=== PATIENT | female | born 1955 | race Caucasian/White ===

== ENCOUNTER → 2019-03-04 | Outpatient (CLI) | payer MEDICARE ==
--- NOTE | 2019-03-04 10:24 | RADIOLOGY REPORT (SQ) ---
EXAM DESCRIPTION: MRI HEAD WITHOUT COMPLETED DATE/TIME: 03/04/2019 8:16 am REASON FOR STUDY: HEADACHE (R51) R51 HEADACHE COMPARISON: None. TECHNIQUE: Multiplanar imaging includes non-contrasted T1, T2, FLAIR, and diffusion with ADC map seq uences. Images stored on PACS. LIMITATIONS: None. FINDINGS: ANATOMY: No anomalies. Normal vascular flow voids. Pituitary fossa normal. CSF SPACES: Normal in size and contour. No hemorrhage. CEREBRUM: Sulci and gyri normal in size and contour. There are few scattered areas of increased whit e matter signal on FLAIR imaging. No evidence of hemorrhage, mass, or extraaxial fluid collection. POSTERIOR FOSSA: No signal alteration. No hemorrhage. No edema, masses or mass effect. Internal gunnar tory canals, cerebello-pontine angles, mastoids normal. DIFFUSION IMAGING: Negative for acute or sub-acute infarction. ORBITS: No masses. Globes normal. PARANASAL SINUSES: No fluid levels. Mucosa normal. OTHER: No other significant finding. IMPRESSION: Mild chronic microvascular ischemia with no acute intracranial imaging findings. EVIDENCE OF ACUTE STROKE: NO. TECHNICAL DOCUMENTATION: JOB ID: [id number]- All Rights Reserved Reading location - IP/workstation name: [email or web address]
== END ==
LOC: RAD 07:28
PROVIDERS: ATTEND Family Medicine
DX: R51 Headache (principal)
CPT/HCPCS: 70551

== ENCOUNTER → 2019-10-06 | Outpatient (CLI) | payer MEDICARE | LOC: WI 07:40 | PROVIDERS: ATTEND Physician Assistant | DX: Z12.31 Encounter for screening mammogram for malignant neoplasm of breast (principal) | CPT/HCPCS: 77063; 77067 ==

== ENCOUNTER 2019-10-09 18:09 | Emergency (ER) | payer MEDICARE ==
[2019-10-09] MEDS ORDERED: DIPH/PERTUSS(ACELL)/TETANUS VAC/PF 0.5 ML SYR (>=10YO) IM ONE ×2 (18:30→21:00)
[2019-10-09] MEDS ORDERED: AMOXICILLIN TRIHYD 250 MG CAPSULE PO ONE ×2 (18:30→21:00)
[2019-10-09] MEDS ORDERED: AMOXICILLIN TR/POT CLAVULANATE 500-125 MG TAB PO ONE ×2 (18:30→21:00)
[2019-10-09] MEDS ORDERED: IBUPROFEN 800 MG TABLET PO ONE (18:30)
--- NOTE | 2019-10-09 18:44 | ER Document Report ---
ED Animal Bite - General Chief Complaint: Dog Bite Stated Complaint: DOG BITE/HAND,ARM Time Seen by Provider: 10/09/19 18:29 Primary Care Provider: YANCI SIBLEY PA [PHYSICIAN SERVICE DELIVERY MANAGER] - Follow up as needed Notes: Patient is a 63-year-old female who presents emergency department with a chief complaint of dog bite. Patient reports about 30 minutes prior to arrival she attempted to break up a dog fight between her own dogs when she obtained multiple puncture wounds to left forearm and right hand. She reports the dog's immunizations are up-to-date. Unsure as her tetanus is up-to-date. Patient reports numbness to the right fourth and fifth digits. Patient denies any other injury. Patient reports that the dogs were fighting over a toy. TRAVEL OUTSIDE OF THE [place] IN LAST 30 DAYS: No - Related Data Allergies/Adverse Reactions: enoxaparin [From Lovenox] Allergy (Verified 10/09/19 18:29) Past Medical History - General Information source: Patient - Social History Smoking Status: Former Smoker Lives with: Family Family History: None Patient has suicidal ideation: No Patient has homicidal ideation: No - Past Medical History Cardiac Medical History: Reports: None Pulmonary Medical History: Reports: None EENT Medical History: Reports: None Neurological Medical History: Reports: None Endocrine Medical History: Reports: None Renal/ Medical History: Reports: None Malignancy Medical History: Reports: None GI Medical History: Reports: None Musculoskeletal Medical History: Reports None Skin Medical History: Reports None Psychiatric Medical History: Reports: None Traumatic Medical History: Reports: None Infectious Medical History: Reports: None Past Surgical History: Reports: Hx Orthopedic Surgery - R & L hand, L ankle, R foot Review of Systems - Review of Systems Constitutional: No symptoms reported EENT: No symptoms reported Cardiovascular: No symptoms reported Respiratory: No symptoms reported Gastrointestinal: No symptoms reported Genitourinary: No symptoms reported Female Genitourinary: No symptoms reported Musculoskeletal: No symptoms reported Skin: See HPI Hematologic/Lymphatic: No symptoms reported Neurological/Psychological: No symptoms reported Physical Exam - Notes Notes: GENERAL: Well-appearing, well-nourished and in no acute distress. HEAD: Atraumatic, normocephalic. EYES: Pupils equal round and reactive to light, extraocular movements intact, sc quita anicteric, conjunctiva are normal. ENT: Nares patent, oropharynx clear without exudates. Moist mucous membranes. NECK: Normal range of motion, supple without lymphadenopathy or JVD. LUNGS: Breath sounds clear to auscultation bilaterally and equal. No wheezes rales or rhonchi. HEART: Regular rate and rhythm without murmurs, rubs or gallops. ABDOMEN: Soft, nontender, normoactive bowel sounds. No guarding, no rebound. No masses appreciated. BACK: No cervical, thoracic, lumbar midline tenderness. No saddle anesthesia, normal distal neurovascular exam. GENITOURINARY: Deferred. EXTREMITIES: Patient has a 2-1/2 cm laceration that is jagged to the dorsal aspect of the left forearm. There is an active ooze of blood. Patient also has a puncture wound noted to the dorsal aspect of the lower left forearm. To the left hand patient has a strong contract engineer. Patient has a less than 2-second cap refill in all digits. Patient denies numbness or tingling. Patient has good flexion-extension of all digits. Patient has a strong left radial pulse. Patient has a 1 cm laceration noted to the palmar aspect of the right hand. There is an active ooze of blood. Patient also has 2 puncture wounds noted to the dorsal aspect of the right hand. Patient does have a large amount of ecchymosis noted to the dorsal aspect of the right hand. Patient has weak flexion and extension of the third fourth and fifth digit. Patient reports that this induces pain when attempting to flex and extend but she is able to perform both. Patient has less than 2-second cap refill on all digits of the right hand. Patient limited on contract engineer of the right hand do to pain with movement. NEUROLOGICAL: Cranial nerves II through XII grossly intact. Normal speech, normal gait. PSYCH: Normal mood, normal affect. SKIN: Warm, Dry, normal turgor, no rashes or lesions noted. Course - Re-evaluation Re-evalutation: 10/09/19 18:41 While sitting in the lobby patient was in the wheelchair. Neighbor states that she was talking to the patient when she complained of right hand pain that was severe and then passed out. I was immediately brought to the patient's side when she did arouse with a sternal rub. Patient has been mentating appropriately over the past 10 minutes without altered level of consciousness. Patient reports she was having significant pain to the right hand. We did rewrap the patient's wounds with a wet gauze. Will obtain x-ray, give tetanus, initiate prophylactic antibiotics. We will continue to monitor the patient. 10/09/19 21:19 Patient tolerated wound cleansing well. Patient given strict return precautions and noted to come back in 10 days to have the sutures removed. Patient verbalized understanding. I did reiterate the importance of checking the wounds multiple times per day for signs of infection. Once again patient reports that the dog's immunizations are up-to-date. Patient has not had any more episodes of severe pain and episodes of passing out. She has been mentating appropriately and is alert and oriented x4. Patient drinking without any difficulty. Patient stable for discharge. - Diagnostic Test Radiology reviewed: Reports reviewed Radiology results interpreted by me: 10/09/19 20:16 Forearm X-Ray 10/09/19 18:32 IMPRESSION: No soft tissue abnormality or radiopaque foreign body. No acute fr acture. Hand X-Ray 10/09/19 18:32 IMPRESSION: No acute fracture of the right hand. No soft tissue abnormality or radiopaque foreign body. 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 Procedures - Laceration/Wound Repair Left Distal Arm Time completed: 20:30 Wound length (cm): 2.5 Wound's Depth, Shape: Irregular, Flap Laceration pre-procedure: Sterile PPE donned, Sterile drapes applied, Shur-Clens applied Anesthetic type: 1% Lidocaine Volume Anesthetic (mLs): 5 Wound explored: Clean Irrigated w/ Saline (mLs): 250 Wound Repaired With: Sutures Suture Size/Type: 5:0, Ethilon Number of Sutures: 2 Post-procedure wound care: Sterile dressing applied Post-procedure NV exam normal: Yes Complications: No Notes: 10/09/19 21:16 Patient had a jagged 2.5 cm laceration to the dorsal aspect of the left lower forearm. This was loosely approximated with 2 sutures. This was not completely closed due to risk for high infection. The wound was copiously irrigated with Shur-Clens and saline. Nonstick dressing applied. Right Volar Hand Time completed: 20:40 Wound length (cm): 1 Wound's Depth, Shape: Superficial, Flap Laceration pre-procedure: Sterile PPE donned, Sterile drapes applied, Shur-Clens applied Anesthetic type: 1% Lidocaine Volume Anesthetic (mLs): 2 Wound explored: Clean Irrigated w/ Saline (mLs): 50 Wound Repaired With: Sutures Suture Size/Type: 5:0 Number of Sutures: 1 Post-procedure wound care: Sterile dressing applied Post-procedure NV exam normal: Yes Complications: No Notes: 10/09/19 21:19 Single suture was used to bring the 1 cm skin flap loosely approximated to the right palmar aspect. Hands front picture: 1 - 1 cm lac Discharge - Discharge Clinical Impression: Puncture wound Dog bite Qualifiers: Encounter type: initial encounter Qualified Code(s): W54.0XXA - Bitten by dog, initial encounter Condition: Stable Disposition: HOME, SELF-CARE Additional Instructions: *Today was in the emergency department after obtaining the animal bite. You are being placed on prophylactic antibiotics. The antibiotic is called Augmentin. You will take this twice daily for the next 10 days. The wound to the left upper forearm did need to be partially closed with sutures. This was not completely closed due to the high risk of infection. Please watch and monitor your wounds carefully. Please monitor for increased redness, increased swelling and drainage. If you develop any of the symptoms, or a fever please return emergency department immediately. Please return to the ER in 10 days for suture removal. Animal Bites Animal bites are often heavily contaminated with bacteria. In spite of thorough cleansing and proper treatment, these wounds frequently become infected. Bite wounds of the hands are especially prone to complications. Bites are dressed, if possible. Large wounds may require suturing after internal cleansing. Because of infection risk, some large wounds must remain unstitched. Your doctor is trained to advise you on the best treatment for your bite. Call the doctor at once if the wound becomes red, swollen, warm, increasingly painful, or if it begins to drain. Danger signs also include red streaks up the involved extremity, swollen glands in the groin or under the arm, or fever and chills. The risk of rabies from domestic animals is very low. Bats, sick animals, and wild animals may expose you to rabies. The physician, or the health department, will inform you if you will need to receive the rabies vaccine. Prescriptions: Amox Tr/Potassium Clavulanate [Augmentin 875-125 Tablet] 1 tab PO BID 10 Days #20 tablet Ibuprofen [Motrin 800 mg Tablet] 800 mg PO Q8H PRN #30 tab PRN Reason: Referrals: YANCI SIBLEY PA [PHYSICIAN SERVICE DELIVERY MANAGER] - Follow up as needed
--- NOTE | 2019-10-09 19:11 | RADIOLOGY REPORT (SQ) ---
EXAM DESCRIPTION: HAND RIGHT 3 VIEWS COMPLETED DATE/TIME: 10/09/2019 5:55 pm REASON FOR STUDY: DOG BITE, PUNCTURE WOUND RIGHT HAND COMPARISON: None. EXAM PARAMETERS: NUMBER OF VIEWS: Three views. TECHNIQUE: AP, lateral and oblique radiographic images acquired of the right hand. LIMITATIONS: None. FINDINGS: MINERALIZATION: Osteopenia. BONES: No acute fracture or dislocation. No worrisome bone lesions. 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 JOINTS: No effusions. SOFT TISSUES: No soft tissue swelling. No foreign body. OTHER: No other significant finding. IMPRESSION: No acute fracture of the right hand. No soft tissue abnormality or radiopaque foreign b amina. 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 TECHNICAL DOCUMENTATION: JOB ID: [id number] [employer]- All Rights Reserved Reading location - IP/workstation name: [email or web address]
--- NOTE | 2019-10-09 19:12 | RADIOLOGY REPORT (SQ) ---
EXAM DESCRIPTION: FOREARM LEFT COMPLETED DATE/TIME: 10/09/2019 5:55 pm REASON FOR STUDY: DOG BITE, PUNCTURE WOUND LEFT FOREARM COMPARISON: None. NUMBER OF VIEWS: Two views. TECHNIQUE: Two radiographic images acquired of the left forearm, including elbow and wrist in at [address] one projection. LIMITATIONS: None. FINDINGS: MINERALIZATION: Normal. BONES: No acute fracture. No worrisome bone lesions. SOFT TISSUES: No obvious swelling or foreign body. OTHER: No other significant finding. IMPRESSION: No soft tissue abnormality or radiopaque foreign body. No acute fracture. TECHNICAL DOCUMENTATION: JOB ID: [id number] [employer]- All Rights Reserved Reading location - IP/workstation name: [email or web address]
[2019-10-09] MEDS ORDERED: LIDOCAINE 1% INJ-PF (10 MG/ML) 30 ML SDV INJ ONE (19:37)
[2019-10-09] MEDS ORDERED: IBUPROFEN 800 MG TABLET ONE (20:46)
[2019-10-09 22:40] VITALS: BP 127/65
== END 2019-10-09 21:20 | disposition home or self-care (01) ==
LOC: ER 18:09
DX: S51.852A Open bite of left forearm, initial encounter (principal); S61.451A Open bite of right hand, initial encounter; W54.0XXA Bitten by dog, initial encounter; Y93.K9 Activity, other involving animal care; Y92.009 Unspecified place in unspecified non-institutional (private) residence as the place of occurrence of the external cause; M19.041 Primary osteoarthritis, right hand; R55 Syncope and collapse; Z88.8 Allergy status to other drugs, medicaments and biological substances; Z87.891 Personal history of nicotine dependence; Z23 Encounter for immunization
CPT/HCPCS: 99283; 90471; 73090; 73130; 90715; 12001; A9270 ×3; J3490